=== PATIENT | female | born 1985 | race Caucasian/White ===

== ENCOUNTER 2018-05-23 17:46 | Emergency (ER) | payer OTHER ==
[2018-05-23] MEDS: IBUPROFEN 600 MG TAB PO (22:02)
[2018-05-23] MEDS: HYDROCODONE/APAP (5/325) TAB PO (22:03)
== END 2018-05-23 23:39 | disposition home or self-care (01) ==
LOC: FTE 23:39
DX: S99.911A Unspecified injury of right ankle, initial encounter (principal); X50.1XXA Overexertion from prolonged static or awkward postures, initial encounter; Y92.9 Unspecified place or not applicable
CPT/HCPCS: 73610; 73610-RT; 73630; 81025; 99283-25